=== PATIENT | female | born 1980 | race African-American/Black ===

== ENCOUNTER 2016-11-30 09:03 | Emergency (ER) | payer SELFPAY ==
[2016-11-30 09:14] VITALS: TEMP 99.8; BMI 32.8
--- NOTE | 2016-11-30 09:46 | PDOC ---
History of Present Illness - General Chief Complaint: Vaginal Bleeding Stated Complaint: SPOTTING (6 WKS ) Time Seen by Provider: 11/30/16 09:24 History Source: Patient - History of Present Illness Timing/Duration: reports: getting worse Past History - Past Medical History Allergies/Adverse Reactions: Allergies Allergy/AdvReac Type Severity Reaction Status Date / Time No Known Allergies Allergy Verified 11/30/16 09:14 Home Medications: Ambulatory Orders NK [No Known Home Medication] 11/30/16 Other medical history: NONE - Psycho/Social/Smoking Cessation Hx Anxiety: No Suicidal Ideation: No Smoking History: Never smoked Hx Alcohol Use: No Drug/Substance Use Hx: No Substance Use Type: None Review of Systems - Review of Systems Constitutional: No: Chills, Fever ABD/GI: No: Nausea, Vomiting, Abdominal cramping : No: Dysuria, Flank Pain, Hematuria *Physical Exam - Vital Signs Last Vital Signs Temp Pulse Resp BP Pulse Ox 99.8 F H 91 H 20 113/73 100 11/30/16 09:11 11/30/16 09:11 11/30/16 09:11 11/30/16 09:11 11/30/16 09:11 - Physical Exam General Appearance: Yes: Appropriately Dressed. No: Apparent Distress HEENT: positive: Normal Voice Neck: positive: Supple Respiratory/Chest: negative: Respiratory Distress Female Pelvic Exam: positive: normal adnexa, vaginal bleeding (small amount of BRB in vault, os closed). negative: CMT Gastrointestinal/Abdominal: positive: Soft. negative: Tender Musculoskeletal: negative: CVA Tenderness Integumentary: positive: Dry, Warm Neurologic: positive: Fully Oriented, Alert, Normal Mood/Affect ED Treatment Course - RADIOLOGY Radiology Studies Ordered: Category Date Time Status <14WKS US [US] Stat Ultrasound 11/30/16 09:25 Ordered Medical Decision Making - Medical Decision Making 11/30/16 09:41 36 yo F, , ~5w 6d by dates, no care as of yet, here w/ vaginal spotting > 1 week that worsened yesterday w/ clots this am. No abd pain, dysuria , n/v/f/c See exam 1st trimester bleed R/o ectopic vs spon AB vs vag bleed in nl preg Stable w/ ED w/ minimal blood in vag vault w/ closed os Abd benign -T&S -beta -ua -US 11/30/16 12:37 Beta in the 300s w/ US read as no viable IUP w/ nl adnexa, possible early gestation. No need for rhogam. UA wnl. Pt discharged in stable condition for repeat assessment with OB in 2 days. Patient understands that if unable to see her OB in 48 hours, to return to ED for repeat beta and possible ultrasound 11/30/16 12:38 11/30/16 12:40 *DC/Admit/Observation/Transfer Diagnosis at time of Disposition: Threatened - Discharge Dispostion Disposition: HOME Condition at time of disposition: Good - Patient Instructions Printed Discharge Instructions: Threatened Additional Instructions: Your US did not show an intrauterine or any obvious evidence of an ectopic today Your beta was 321 which could mean an early vs miscarriage Please see your OB in 48 hrs for reassessment or return to ED
[2016-11-30 09:50] LABS: URINE APPEARANCE CLEAR; URINE BILIRUBIN NEGATIVE (NEGATIVE); URINE COLOR STRAW; URINE GLUCOSE (UA) NEGATIVE (NEGATIVE); URINE KETONE NEGATIVE (NEGATIVE); URINE LEUK ESTERASE NEGATIVE (NEGATIVE); URINE NITRITE NEGATIVE (NEGATIVE); URINE PROTEIN NEGATIVE (NEGATIVE); URINE UROBILINOGEN NEGATIVE E.U./dl (0.2-1.0)
[2016-11-30 09:56] LABS: URINE BLOOD 2+ (NEGATIVE)
[2016-11-30 09:59] LABS: URINE RBC 2 /hpf (0-3); URINE WBC <1 /hpf (3-5)
--- NOTE | 2016-11-30 09:59 | PDOC ---
*Physical Exam - Vital Signs Last Vital Signs Temp Pulse Resp BP Pulse Ox 99.8 F H 91 H 20 113/73 100 11/30/16 09:11 11/30/16 09:11 11/30/16 09:11 11/30/16 09:11 11/30/16 09:11 ED Treatment Course - ADDITIONAL ORDERS Additional order review: Laboratory Results 11/30/16 09:21 Urine Color Straw Urine Appearance Clear Urine pH 6.0 Urine Protein Negative Urine Glucose (UA) Negative Urine Ketones Negative Urine Blood 2+ H Urine Nitrite Negative Urine Bilirubin Negative Urine Urobilinogen Negative Ur Leukocyte Esterase Negative Urine HCG, Qual Positive Medical Decision Making - Medical Decision Making 11/30/16 09:59 Patient seen and evaluated with the nurse practitioner. I agree with the overall evaluation, assessment, and management with the following summary of visit: 36-year-old female presents with first trimester vaginal spotting. Labs, urinalysis, Rh, hCG, ultrasound Dispo accordingly
[2016-11-30 13:11] VITALS: BP 110/69; PULSE 92
== END 2016-11-30 12:55 | disposition home or self-care (01) ==
LOC: JER 09:03
DX: O26.891 Other specified pregnancy related conditions, first trimester (principal); Z3A.01 Less than 8 weeks gestation of pregnancy; O20.0 Threatened abortion
CPT/HCPCS: 36415; 76801-TC; 76830-TC; 81003; 81015; 84702; 84703; 86850; 86900; 86901; 99282-25